=== PATIENT | male | born 1975 | race Caucasian/White ===

== ENCOUNTER 2022-06-12 12:29 | Emergency (ER) | payer OTHER ==
[2022-06-12] MEDS ORDERED: methylPREDNISolone SOD SUCCI 125 MG/2 ML VIAL IV STA (12:33)
[2022-06-12] MEDS ORDERED: FAMOTIDINE 20 MG/2 ML VIAL IV STA (12:33)
[2022-06-12 12:38] VITALS: TEMP 98.2
--- NOTE | 2022-06-12 12:57 | ED ---
Skin/Abscess/FB HPI - General Chief complaint: Skin/Abscess/Foreign Body Stated complaint: bee sting Time Seen by Provider: 06/12/22 12:29 Source: patient, EMS, RN notes reviewed Mode of arrival: EMS Limitations: no limitations - History of Present Illness Initial comments: 39-year-old male with a prior history of bee sting ALLERGIES many years ago who states he was stung multiple times about cutting his lawn just prior to arrival. He was stung he states on the ankles especially on the left the left forearm and in the back. He did have hives over his entire body was given epinephrine by first responders. Is given Benadryl. He is feeling better he was transferred here for further evaluation. He denies any shortness of breath at this time no difficulty swallowing. MD complaint: insect bite/sting - Related Data Previous Rx's Medication Instructions Recorded methylPREDNISolone Dose Pack 4 mg PO DIRECTED #21 tab 06/12/22 [Medrol Dose Pack] Allergies Allergy/AdvReac Type Severity Reaction Status Date / Time bee venom protein (honey bee) Allergy Dyspnea Verified 06/12/22 12:38 Review of Systems ROS Statement: Those systems with pertinent positive or pertinent negative responses have been documented in the HPI. ROS Other: All systems not noted in ROS Statement are negative. Past Medical History Past Medical History: No Reported History Smoking Status: Former smoker Past Alcohol Use History: Occasional Past Drug Use History: None Reported General Exam - General Exam Comments Initial Comments: This is a well-developed well-nourished awake alert oriented 4 male Limitations: no limitations General appearance: alert, anxious Head exam: Present: atraumatic, normocephalic, normal inspection Eye exam: Present: normal appearance, PERRL, EOMI. Absent: scleral icterus, conjunctival injection, periorbital swelling ENT exam: Present: mucous membranes moist, other (Mild posterior pharyngeal hyperemia no evidence of edema uvula midline.) Neck exam: Present: normal inspection, full ROM, other (No stridor JVD or bruits). Absent: tenderness, meningismus, lymphadenopathy Respiratory exam: Present: normal lung sounds bilaterally. Absent: respiratory distress, wheezes, rales, rhonchi, stridor Cardiovascular Exam: Present: regular rate, normal rhythm, normal heart sounds. Absent: systolic murmur, diastolic murmur, rubs, gallop, clicks GI/Abdominal exam: Present: soft, normal bowel sounds. Absent: distended, tenderness, guarding, rebound, rigid Extremities exam: Present: full ROM, normal capillary refill. Absent: tenderness, pedal edema, joint swelling, calf tenderness Back exam: Present: normal inspection Neurological exam: Present: alert, oriented X3, CN II-XII intact Psychiatric exam: Present: normal affect, normal mood Skin exam: Present: warm, dry, intact. Absent: rash Course Vital Signs 06/12/22 12:33 Temperature 98.2 F Pulse Rate 79 Respiratory 16 Rate Blood Pressure 129/83 O2 Sat by Pulse 96 Oximetry - Reevaluation(s) Reevaluation #1: 06/12/22 13:33 Reexamination patient finds that he is much improved at this time his skin color is returning to normal no respiratory difficulties. he is requesting to be discharged. Medical Decision Making - Medical Decision Making Patient is markedly improved from admission. He feels back to normal he is requesting discharge she will be discharged. Disposition Clinical Impression: Bee sting reaction Disposition: HOME SELF-CARE Condition: Good Instructions (If sedation given, give patient instructions): Insect Bite or Sting (ED) Additional Instructions: Continue with the use of Benadryl 25 mg every 6 hours as needed. Avoid hot environments for the next couple days. Prescriptions: methylPREDNISolone Dose Pack [Medrol Dose Pack] 4 mg PO DIRECTED #21 tab Is patient prescribed a controlled substance at d/c from ED?: No Referrals: None,Stated [Primary Care Provider] - 1-2 days Decision Date: 06/12/22 Decision Time: 13:36
[2022-06-12 13:43] VITALS: BP 108/73; PULSE 70; RESP 18
== END 2022-06-12 13:42 | disposition home or self-care (01) ==
LOC: EC 12:29
DX: T63.441A Toxic effect of venom of bees, accidental (unintentional), initial encounter (principal); Z87.891 Personal history of nicotine dependence; Z91.030 Bee allergy status
CPT/HCPCS: 99282; 96374; 96375; J2930